=== PATIENT | female | born 1990 | race Caucasian/White ===

== ENCOUNTER 2018-02-03 17:34 | Emergency (ER) | payer MEDICAID | END 2018-02-03 19:44 | disposition left against medical advice (07) | LOC: D.ER 17:34 | DX: H92.02 Otalgia, left ear (principal) ==

== ENCOUNTER 2019-04-06 15:36 | Emergency (ER) | payer SELFPAY ==
[~2019-04-06] VITALS: Ht 160 cm; Wt 74.1 kg
[2019-04-06 16:09] VITALS: BP 124/78; Ht 160 cm; Wt 74.1 kg
== END 2019-04-06 18:20 | disposition left against medical advice (07) ==
LOC: D.ER 15:36
DX: K13.79 Other lesions of oral mucosa (principal)

== ENCOUNTER 2019-05-22 15:56 | Emergency (ER) | payer MEDICAID ==
[~2019-05-22] VITALS: Ht 160 cm; Wt 72.7 kg
[2019-05-22 16:04] VITALS: Ht 160 cm; Wt 72.7 kg
[2019-05-22 16:31] LABS: BASOPHILS 0.1 % (0-2); EOSINOPHILS 0.2 % (0-7); HEMATOCRIT 39.6 % (36.0-48.0); HEMOGLOBIN 13.7 g/dL (12-16); IMMATURE GRANULOCYTES 0.2 % (0-5); LYMPHOCYTES 15.9 % (15-50); MCH 31.2 pg (26.0-34.0); MCHC 34.6 g/dL (31.0-37.0); MCV 90.2 fL (80.0-100.0); MEAN PLATELET VOLUME 11.1 fL (7.4-10.4); MONOCYTES 5.9 % (2-11); NEUTROPHILS 77.7 % (40-80); PLATELET COUNT 220 10x3/uL (130-400); RBC 4.39 10x6/uL (4.00-5.40); RDW 12.9 % (11.5-14.5); WBC 10.2 10x3/uL (4.8-10.8)
[2019-05-22 16:55] LABS: ALBUMIN 4.1 g/dL (3.4-5.0); ALKALINE PHOSPHATASE 68 U/L (46-116); ALT (SGPT) 11 U/L (10-68); BILIRUBIN - TOTAL 0.47 mg/dL (0.2-1.3); CALC OSMOLALITY 275 mosm/kg (275-300); CALCIUM 8.9 mg/dL (8.5-10.1); CARBON DIOXIDE 21.5 mmol/L (21.0-32.0); CHLORIDE - SERUM 104 mmol/L (98-107); CREATININE - SERUM 0.7 mg/dL (0.6-1.3); GLUCOSE 123 mg/dL (74-106); POTASSIUM - SERUM 3.3 mmol/L (3.5-5.1); PROTEIN - SERUM 7.5 g/dL (6.4-8.2); SODIUM 139 mmol/L (136-145); UREA NITROGEN 5 mg/dL (7-18); eGFR NON AFRICAN AMERICAN > 90 mL/min (90-120)
[2019-05-22] MEDS ORDERED: CLEOCIN HCL300 MG PO (18:42)
[2019-05-22 18:57] VITALS: BP 136/82
== END 2019-05-22 18:58 | disposition home or self-care (01) ==
LOC: D.ER 15:56
PROVIDERS: Emergency Medicine
DX: K04.7 Periapical abscess without sinus (principal)